=== PATIENT | female | born 1995 | race Caucasian/White ===

== ENCOUNTER 2021-11-28 07:12 | Inpatient (IN) | payer OTHER, SELFPAY ==
[2021-11-28 08:01] VITALS: BMI 27.2
[2021-11-28] MEDS ORDERED: hydrALAZINE 20 MG/ML VIAL SLOW IVP PRN ×2 (08:24→13:29)
[2021-11-28 09:18] LABS: Hemoglobin 11.7 g/dL (12.0-15.5); Mean Corpuscular HGB CONC 32.5 g/dL (32.0-36.0); Mean Corpuscular Hemoglobin 30.2 pg (27.0-33.0); Mean Platelet Volume 10.5 fl (7.4-10.4); Platelet Count 285 10x3/uL (150-450); RBC Distribution Width 13.5 % (11.5-14.5); Red Blood Cell (RBC) Count 3.87 10x6/uL (3.90-5.03); White Blood Cell (WBC) Count 11.6 10x3/uL (3.5-10.5)
[2021-11-28] MEDS ORDERED: Butorphanol Tartrate 1 MG/ML VIAL SLOW IVP PRN (13:29)
[2021-11-28] MEDS ORDERED: Promethazine HCl 25 MG/ML VIAL IM PRN (13:29)
[2021-11-28] MEDS ORDERED: Ondansetron PF 4 MG/2 ML Vial IVP PRN (13:29)
[2021-11-28] MEDS ORDERED: Lidocaine 1% (PF) 30 ML VIAL SC PRN (13:29)
[2021-11-28] MEDS ORDERED: HYDROcodone/Acetaminophen 5/325 mg Tablet PO PRN (13:29)
[2021-11-28] MEDS ORDERED: Acetaminophen 500 MG TAB PO PRN (13:29)
[2021-11-28] MEDS ORDERED: Ibuprofen 800 MG TAB PO PRN (13:29)
[2021-11-28] MEDS ORDERED: NS w/ Oxytocin 30 units 500 ML IV SCH ×2 (13:30)
[2021-11-28] MEDS ORDERED: Lactated Ringer's 1,000 ML IV SCH ×2 (13:30)
[2021-11-28 15:13] LABS: HIV (1/2) Antibody/Antigen Non-Reactive (NonReactive); HIV 1/2 INDEX 0.07 S/CO (<1.00); Hep B Surf Ag Non-Reactive S/CO (NonReactive); Syphilis Antibody Nonreactive (Nonreactive); Syphilis Antibody Index 0.09 S/CO (<1.00 Non-Reactive)
[2021-11-28 15:25] LABS: HBSAg Index 0.18 S/CO (0-0.99)
[2021-11-28 17:24] LABS: SARS-CoV-2 NAA Rapid Test Not Detected (NotDetected)
[2021-11-29] MEDS ORDERED: hydrALAZINE 20 MG/ML VIAL SLOW IVP PRN (02:24)
[2021-11-29] MEDS ORDERED: Bisacodyl 10 MG SUPP PR PRN (02:24)
[2021-11-29] MEDS ORDERED: Benzocaine-Menthol 82.5 ML CAN TOP PRN (02:24)
[2021-11-29] MEDS ORDERED: Lanolin Ointment 7 GM TUBE TOP PRN (02:24)
[2021-11-29] MEDS ORDERED: Boostrix 0.5 ML (Tdap) VIAL IM ONE (02:24)
[2021-11-29] MEDS ORDERED: Milk Of Magnesia 30 ML UDCUP PO PRN (02:24)
[2021-11-29] MEDS: Ibuprofen 800 MG TAB PO SCH ×3 (05:24→21:32)
[2021-11-29] MEDS: Ferrous Sulfate 325 MG TAB PO SCH ×2 (07:31→22:38)
[2021-11-29] MEDS: Docusate 100 MG CAP PO SCH ×2 (08:21→21:33)
[2021-11-29] MEDS: Prenatal Vitamin 1 TAB PO SCH (08:21)
[2021-11-30] MEDS: Ibuprofen 800 MG TAB PO SCH (06:05)
[2021-11-30] MEDS: Ferrous Sulfate 325 MG TAB PO SCH (07:28)
[2021-11-30 08:05] VITALS: BP 116/62; TEMP 97.5
[2021-11-30] MEDS: Prenatal Vitamin 1 TAB PO SCH (08:35)
[2021-11-30] MEDS: Docusate 100 MG CAP PO SCH (08:35)
== END 2021-11-30 10:45 | disposition home or self-care (01) | DRG 807 ==
LOC: CSHLD/OP 07:12 → CSHLD 16:17 → CSHPP 11-29 02:23
PROVIDERS: ADMIT Obstetrics & Gynecology; ATTEND Obstetrics & Gynecology
PROC: 10E0XZZ Delivery of Products of Conception, External Approach (ICD-10-PCS; principal; 2021-11-28)
PROC: 0KQM0ZZ Repair Perineum Muscle, Open Approach (ICD-10-PCS; 2021-11-28)
PROC: 3E033VJ Introduction of Other Hormone into Peripheral Vein, Percutaneous Approach (ICD-10-PCS; 2021-11-28)
DX: O36.5930 Maternal care for other known or suspected poor fetal growth, third trimester, not applicable or unspecified (principal); Z37.0 Single live birth; Z3A.37 37 weeks gestation of pregnancy; O70.1 Second degree perineal laceration during delivery; Z20.822 Contact with and (suspected) exposure to COVID-19
CPT/HCPCS: 36415; 76815; 85027; 86780; 86850; 86900; 86901; 87340; 87389; 99285; J2590; U0002